=== PATIENT | female | born 1975 | race Caucasian/White ===

== ENCOUNTER 2019-04-08 15:48 | Observation (INO) ==
[2019-04-08] MEDS ORDERED: NS 1,000 ML IV ONE (16:43)
--- NOTE | 2019-04-08 17:07 | Diag Imaging Result Doc PS360 ---
EXAM: CHEST-PORTABLE HISTORY: Subdural TECHNIQUE: Chest single view COMPARISON: 09/16/2018 FINDINGS: The lungs are well expanded. The heart is not enlarged. The vessels are not distended. There are no infiltrates. No effusion identified. Left granuloma. IMPRESSION: Negative exam. Electronically signed by Barry Padilla 04/08/2019 5:04 PM
[2019-04-08 17:11] LABS: BASO# 0.08 X1000 (0.0-0.2); BASO% 0.6 % (0.0-0.8); EOS# 0.45 X1000 (0.0-0.7); EOS% 3.4 % (0.0-10.0); HEMATOCRIT 45.1 % (37.0-47.0); HEMOGLOBIN 15.4 g/dL (12.0-16.0); IMM GRAN# 0.03 X1000 (0.0-0.04); IMM GRAN% 0.2 % (0.0-0.5); LYMPH# 4.84 X1000 (1.2-3.4); MCH 31.6 PG (27-31); MCHC 34.1 g/dL (33-37); MCV 92.4 FL (81-99); MONO# 1.06 X1000 (0.11-0.59); MONO% 8.1 % (1.7-9.3); MPV 9.9 FL (7.4-10.4); NEUT# 6.62 X1000 (1.4-6.5); NEUT% 50.7 % (42.2-75.2); PLT 428 X1000 (130-400); RBC 4.88 XMIL (4.2-5.4); RDW 13.4 % (11.5-14.5); WBC 13.08 X1000 (4.8-10.8)
[2019-04-08 17:22] LABS: AGAP 14; ALB/GLOB RATIO 1.9; ALBUMIN 4.6 g/dL (3.5-5.0); ALKALINE PHOSPHATASE 68 U/L (32-104); BUN 12 mg/dL (8-22); CHLORIDE 101 mmol/L (98-107); COSMO 280; CREATININE 0.8 mg/dL (0.5-0.9); ESTIMATED GFR > 60; GLUCOSE 88 mg/dL (70-104); GOT 15 U/L (10-30); GPT 16 U/L (10-36); POTASSIUM 4.3 mmol/L (3.5-5.1); SODIUM 141 mmol/L (136-145); TCO2 26 mmol/L (25-35); TOTAL BILIRUBIN 0.31 mg/dL (0.20-1.00)
--- NOTE | 2019-04-08 17:30 | Diag Imaging Result Doc PS360 ---
EXAM : CT CERVICAL SPINE W/O CONTRAST HISTORY: neck pain after head injury TECHNIQUE: CT cervical spine without contrast COMPARISON: None. FINDINGS: There is reversal of the normal curvature with mild scoliosis as well. No precervical soft tissue swelling. No subluxation. No fracture. IMPRESSION: Cervical spine: No acute fracture. This exam was performed using automated exposure control, adjustment of mA or kV according to patient size, and/or use of iterative reconstruction technique. Electronically signed by Barry Padilla 04/08/2019 5:28 PM
[2019-04-08 17:45] LABS: INR 0.9; PROTIME 12.2 Seconds (11.0-16.0)
--- NOTE | 2019-04-08 17:45 | PROVIDER DOCUMENTATION ---
This chart was entered by Pily Aj Scribe, acting as scribe for Bronson Anderson MD. HPI-Head Injury - General Chief Complaint: Head Injury Stated Complaint: CAT SCAN RESULTS Time Seen by Provider: 04/08/19 16:13 Source: patient Allergies/Adverse Reactions: Patient Allergies Allergy/AdvReac Type Severity Reaction Status Date / Time paroxetine [From Paxil] Allergy Unknown Verified 04/08/19 17:20 Home Medications: Home Medication List Medication Instructions Recorded Confirmed Last Taken Type NK [No Home Medications] 04/08/19 04/08/19 Unknown History - History of Present Illness-Head Injury Nature of Presenting Problem: 43 yowf presents to the ed with c/o intermittent left sided/frontal headache, blurry vision and nausea since a fall last week where pt hit her head on a table. pt on exam is nontoxic in appearance. pt came to ed for CT results and shows pt has small acute extra-axial , subdural hemorrhage in right sylvian fissure Head Injury Location: reports: frontal (left) Other injuries associated with incident:: reports: head Quality of Pain: reports: throbbing Severity: reports: moderate Onset/Duration: reports: 1 week ago Timing: reports: still present, intermittent Method of Injury: reports: fell Any recent trauma/injury?: reports: minor, to head Loss of Consciousness: no loss of consciousness Modifying Factors: improves with: nothing Injury Associated Symptoms: reports: headaches, nausea. denies: back/neck pain, chest pain, dizziness, snap/crack/pop sensation, vomiting, weakness Locality of Occurance: Home Similar Symptoms Previously?: No Recently seen or treated by another doctor?: No Review of Systems - Adult - REVIEW OF SYSTEMS - ADULT Constitutional: denies: chills, fever Eyes: reports: see HPI, blurred vision. denies: eye pain Ears, Nose, Mouth & Throat: reports: no symptoms reported Cardiovascular: denies: chest pain, palpitations, syncope Respiratory: denies: cough, shortness of breath, wheezing Gastrointestinal: reports: nausea. denies: abdominal pain, diarrhea, vomiting Genitourinary: reports: no symptoms reported Musculoskeletal: denies: back pain, neck pain Integumentary: reports: no symptoms reported Neurological: reports: see HPI, headache/migraines. denies: ataxia, di zziness/vertigo, slurred speech, syncope, tremors Psychiatric: reports: no symptoms reported Endocrine: reports: no symptoms reported Hematologic/Lymphatic: reports: no symptoms reported Allergic/Immunologic: reports: no symptoms reported All Other Systems: Reviewed and Negative Past History - Adult - PAST MEDICAL HISTORY-ADULT Review of Records: reports: Old Records Reviewed, Nursing Assessment Review, Medications Reviewed, Social history reviewed & non-contributory. Major Childhood Illnesses: reports: denies history Cardiovascular: reports: denies history Respiratory: reports: denies history Gastrointestinal: reports: denies history Obstetrical/Gynecological: reports: denies history Genitourinary: reports: denies history Musculoskeletal: reports: denies history Neurological: reports: denies history Endocrine/Immune: reports: denies history Other Conditions: reports: denies history - PRIOR SURGERIES/PROCEDURES Surgical/Procedure History: reports: BTL, hernia repair - IMMUNIZATION STATUS Childhood Immunizations: See Nurse Assessment Flu Vaccine: See Nurse Assessment - FAMILY HISTORY Family History: reviewed, not pertinent - SOCIAL HISTORY Smoking: cigarettes, greater than 1 pack/day Provider spent 3-5 mins advising pt. on dangers of tobacco.: Discussed manners to quit use, and f/u contacts for add'l counseling. Substance Use: denies Alcohol Use Frequency: never Living Situation: family Physical Exam- Neurological - Physical Exam-Neuro Initial Vital Signs Reviewed: Yes General Appearance: appears well, alert, mild distress Eye Exam: bilateral eye: normal inspection, PERRL, EOMI HENMT: moist mucous membranes Head Injury: no evidence of injury, other (c/o [place] left sided/frontal) Neck: full range of motion, supple, normal inspection, tender lateral Respiratory: chest non-tender, lungs clear, normal breath sounds Cardiovascular: normal peripheral pulses, regular rate, rhythm Abdominal Exam: normal bowel sounds, non tender, soft, other (c/o mild nausea) Lymphatic: no adenopathy Extremity: normal range of motion, non-tender, normal gait, 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: normal hearing, normal speech, PERRL Coordination/Gait: normal finger to nose, normal gait Motor/Sensory: no motor deficit, no sensory deficit, no pronator drift Neurologic: 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 loader II-XII nml as tested, no motor/sensory deficits Integumentary: normal color, normal turgor, warm/dry Psych/Mental Status: normal mood/affect, normal thought content, normal thought process, oriented x 3 - Glascow Coma Scale Best Eye Response: (4) open spontaneously Best Verbal Response: (5) oriented Best Motor Response: (6) obeys commands Total Glascow Score: 15 Progress - PLAN OF CARE/RESULTS Progress/Plan/Lab Results: Vital Signs - 8 hr 04/08/19 15:52 04/08/19 16:07 04/08/19 16:09 Temperature 98.8 F Pulse Rate 88 77 Respiratory Rate 20 17 Blood Pressure 143/87 122/80 O2 Sat by Pulse Oximetry 95 98 97 04/08/19 16:30 04/08/19 16:31 Temperature Pulse Rate 69 73 Respiratory Rate 24 24 Blood Pressure 117/77 O2 Sat by Pulse Oximetry 97 98 Laboratory Results - last 24 hr 04/08/19 04/08/19 16:05 16:05 WBC 13.08 H RBC 4.88 Hgb 15.4 Hct 45.1 MCV 92.4 MCH 31.6 H MCHC 34.1 RDW Std Deviation 13.4 Plt Count 428 H MPV 9.9 Immature Gran % (Auto) 0.2 Neut % (Auto) 50.7 Lymph % (Auto) 37.0 [place] % (Auto) 8.1 Eos % (Auto) 3.4 Baso % (Auto) 0.6 Immature Gran # (Auto) 0.03 Neut # (Auto) 6.62 H Lymph # (Auto) 4.84 H [place] # (Auto) 1.06 H Eos # (Auto) 0.45 Baso # (Auto) 0.08 Sodium 141 Potassium 4.3 Chloride 101 Carbon Dioxide 26 Anion Gap 14 BUN 12 Creatinine 0.8 Estimated GFR/1.73 m2 > 60 BUN/Creatinine Ratio 15 Glucose 88 Calculated Osmolality 280 Calcium 10.0 Total Bilirubin 0.31 AST 15 ALT 16 Alkaline Phosphatase 68 Total Protein 7.0 Albumin 4.6 Globulin 2.4 Albumin/Globulin Ratio 1.9 Orders Category Date Time Status Nursing- Obtain EKG once Care 04/08/19 16:44 Active Saline Loc DIRECTED Care 04/08/19 16:43 Active CHEST-PORTABLE [RAD] Stat Exams 04/08/19 16:[address] CERVICAL SPINE W/O CONTRAST [CT] Stat Exams 04/08/19 16:44 Completed CBC WITH ELECTRONIC DIFF [HEME] Stat Lab 04/08/19 16:05 Completed COMPREHENSIVE METABOLIC PANEL [CHEM] Stat Lab 04/08/19 16:05 Completed PROTIME WITH INR [COAG] Stat Lab 04/08/19 16:05 Received PTT [COAG] Stat Lab 04/08/19 16:05 Received URINALYSIS W/POSS RFLX CULT [URINALYSIS] Stat Lab 04/08/19 16:43 Uncollected 0.9% Sodium Chloride Inj [Ns] 1,000 ml Med 04/08/19 16:43 Active IV 75 mls/hr EKG [EKG] Stat Ther 04/08/19 16:44 Ordered pt had outpatient CT today and results as follows: very small acute extra-axial, sudural hemorrhage in the right sylvian fissure. this measures 12.5x10mm. no mass effect. the ventricles and sulci are otherwise normal. the skull is intact. sinuses are clear Result Diagrams: 04/08/19 16:05 04/08/19 16:05 - REASSESSMENT Reassessment #1 Time Reassessed: 16:28 Status: unchanged (pt is resting in bed) Reassessment #2 Time Reassessed: 17:28 Status: unchanged ([facility] re-paged for admission) - EKG 1 Time of EKG reading by physician:: 17:03 EKG Read and Signed by:: Bronson Anderson EKG Interpretation (*Must complete 3 of following elements*): Normal Rate: 60 Rhythm: nsr [place]: normal QRS: normal NM Interval: normal ST Wave: normal - XRAY 1 XRAY Study: Chest Impression: Normal ( EXAM: CHEST-PORTABLE HISTORY: Subdural TECHNIQUE: Chest single view COMPARISON: 09/16/2018 FINDINGS: The lungs are well expanded. The heart is not enlarged. The vessels are not distended. There are no infiltrates. No effusion identified. Left granuloma. IMPRESSION: Negative exam. Electronically signed by Barry Padilla 04/08/2019 5:04 PM 04/08/191703 Interpreting Physician: Barry Padilla MD Dictated Date/Time: 04/08/191703 cc: Bronson Anderson MD; Mookie Sinclair MD) - CONSULTS/PCP/HOSPITALIST Notification #1 *Consult/PCP/Hospitalist*: transfer center HH Time Discussed: 16:15 Reason/Comments: phone consult #2 Consult: dr saray santana Time Discussed: 16:38 (pt can be admitted to [facility] and have a CT recheck ran in the orning and then f/u in his office next week) Consult Disposition: other (will admit at [facility]) #3 Consult: [facility] for hospitalist service paged [phone] Time Discussed: 17:09 (will all labs are back pt will be admitted per return call of Namita) Consult Disposition: Admit Departure - Departure Date of Disposition Decision: 04/08/19 Time of Disposition Decision: 16:48 DIAGNOSIS: Subdural hematoma, post-traumatic Qualifiers: Encounter type: initial encounter Loss of consciousness presence/duration: without LOC Qualified Code(s): S06.5X0A - Traumatic subdural hemorrhage without loss of consciousness, initial encounter Disposition: ADMITTED INPATIENT 09 Certified Medical Emergency: Emergent Condition: Stable Referrals and Follow-Ups: Mookie Sinclair MD [Primary Care Provider] - - Critical Care Note This patient required my direct & personal management of CC.: Yes Total Time (mins): 38 Critical Care Statement: This patient required my direct personal management to treat or rule out processes, the absence of which, could potentiallly result in sudden, clinically significant life or limb threatening deterioration. Attestation - Physician/ BENJA Attestation Patient care was provided by Advanced Practice Provider:: No The physician spent face to face time with patient:: Yes Advanced Practice Provider documentation review:: Supervising physician onsite and consulted in the evaluation and care of this patient. The physician did have a face to face encounter with the patient. This chart was documented by the indicated scribe, (Pily Aj Scribe) and accurately reflects the services I performed and decisions made by me, Bronson Anderson MD, as attested by the provider's signature.
[2019-04-08 17:46] LABS: PTT 28.4 Seconds (22.3-41.8)
--- NOTE | 2019-04-08 18:38 | EKG Report ---
Test Performed on : 04/08/2019 4:44:02 PM Test Reason : sdh Blood Pressure : / mmHG Vent. Rate : 060 BPM Atrial Rate : 060 BPM P-R Int : 138 ms QRS Dur : 088 ms QT Int : 406 ms P-R-T Axes : 053 077 064 degrees QTc Int : 406 ms Normal sinus rhythm. Normal ECG When compared with ECG of 26-APR-2011 12:23, No significant change was found Unconfirmed Result
[2019-04-08 18:42] LABS: URINE SOURCE CLEAN CATCH
[2019-04-08 18:49] LABS: BILIRUBIN URINE NEGATIVE (NEGATIVE); BLOOD URINE NEGATIVE (NEGATIVE); COLOR STRAW; GLUCOSE URINE NEGATIVE (NEGATIVE); KETONE URINE NEGATIVE (NEGATIVE); LEUKOCYTES URINE NEGATIVE (NEGATIVE); NITRITE URINE NEGATIVE (NEGATIVE); PH URINE 6.5; PROTEIN URINE NEGATIVE (NEGATIVE); SP GRAVITY URINE 1.007; TURBIDITY URINE CLEAR (CLEAR); UR EPITHELIAL CELLS <10 /HPF (<10); URINE BACTERIA NEGATIVE /HPF; URINE RBC <10 /HPF (<10); URINE WBC <10 /HPF (<10); UROBILINOGEN URINE NORMAL (NORMAL)
--- NOTE | 2019-04-08 19:10 | HISTORY AND PHYSICAL ---
CHIEF COMPLAINT: Intermittent left-sided and frontal headache with blurry vision and nausea after she had a fall last week, and hit her head on a table Saturday. HISTORY OF PRESENTING ILLNESS: This is a 43-year-old female who presents to [facility] with complaints of a intermittent left-sided frontal headache, some blurred vision, and nausea after she states Saturday she was leaning over cleaning, and hit her head on a table. She states she has not felt good since then though she has been working, but was having blurred vision and worsening headaches. Today, she had a CT of the head that showed a very small acute extra-axial subdural hemorrhage in the right Sylvian fissure. The emergency room physician spoke with Dr. Vazquez at [facility], and felt that the patient could be admitted here, and have a CT recheck in the morning, and then follow up in his office this next week. She will be admitted for further evaluation and treatment. PAST MEDICAL HISTORY: None. PAST SURGICAL HISTORY: Bilateral tubal ligation and a hernia repair, and ankle fracture repair. FAMILY HISTORY: Reviewed and noncontributory. SOCIAL HISTORY: She currently lives with family. Smokes a pack of cigarettes a day. Denies any alcohol or illicit drug use. ALLERGIES: Paroxetine. HOME MEDICATIONS: She does not take any medications on a routine basis at this time. LABORATORY DATA: White blood cell count of 13.08, hemoglobin 15.4, hematocrit 45.1, and platelets 428,000. PT and INR of 12.2 and 0.90. Sodium 141, potassium 4.3, chloride 101, CO2 26, BUN of 12, creatinine 0.8, and glucose 88. Her outpatient CT of the head today showed a very small acute extra-axial subdural hemorrhage in the right sylvian fissure. Cervical spine CT showed no acute fracture. Chest x-ray showed a negative exam. REVIEW OF SYSTEMS: She denied any fever or chills. She has had some blurred vision, dizziness, left-sided frontal headache. Denied any chest pain, coughing, or shortness of breath. Denied any abdominal pain, constipation, diarrhea, burning or hurting with urination. PHYSICAL EXAMINATION: On arrival, she had a temperature of 98.8 degrees, pulse 88, respirations 20, blood pressure 143/67 and saturating 95% on room air. GENERAL: This is a 43-year-old female who is lying in the bed and answers questions appropriately. HEENT: Normocephalic, atraumatic. Normal ENT inspection. Oropharynx and nares are clear. EYES: Pupils are equal, round, and reactive to light and accommodation. Extraocular movements are intact. NECK: Normal inspection. Normal range of motion. LUNGS: Clear to auscultation bilaterally with equal lung expansion and chest wall movement. HEART: Regular rate and rhythm. No murmurs, rubs, or gallops. ABDOMEN: Soft, nontender, and nondistended. Bowel sounds are present x4 quadrants. MUSCULOSKELETAL: She has 5/5 strength x4 extremities. NEUROLOGICAL: The cranial nerves 2-12 appear grossly intact. ASSESSMENT: 1. Subdural hemorrhage. 2. Leukocytosis. 3. Headache, secondary to #1. 4. Tobacco abuse. PLAN: She will be admitted to the medical unit. Placed on a regular diet. We will do neuro checks q.4 hours for [address] of the head without contrast in the morning. Toradol 15 mg IV q.6 hours p.r.n., Zofran 4 mg IV q.4 hours p.r.n., Tylenol 650 p.o. q.6 hours p.r.n. Recheck a CBC and a BMP in the morning. Dictated by CASEY Morejon for Placido Dejesus MD
[2019-04-08] MEDS ORDERED: ZOFRAN IV PRN (19:32)
[2019-04-08] MEDS ORDERED: TYLENOL PO PRN (19:32)
[2019-04-08] MEDS ORDERED: TORADOL IV PRN (19:32)
[2019-04-08 21:08] VITALS: BP 123/81
--- NOTE | 2019-04-08 21:49 | HISTORY AND PHYSICAL ---
ADDENDUM: The patient is seen and examined by me [id number]. All the laboratory and vital signs were reviewed. Patient presented to the emergency department due to head trauma that happened a few days ago, last Saturday. It looks like she fell and hit her head on a table. Since then she has been complaining of intermittent left-sided headache. Today in the morning apparently she had an episode of blurred vision associated with nausea in her office. CT scan done as an outpatient showed a very small acute extraaxial subdural hemorrhage in the right sylvian fissure. It looks [facility] and felt that the patient could be admitted here, have a new CT scan in the morning, and recheck the patient. Probably I will get Neurology Department to evaluate this patient prior to her discharge hopefully tomorrow. We will continue to monitor. Her vital signs are stable. Her leukocyte count is a little bit elevated at 13, but I do not have any source of infection. No fever, no chills. I do not see any focal neurological deficits on my physical exam. She is not having blurry vision, either. Family member at the bedside. I agree with the rest of the nurse practitioner's assessment and plan. cc: Placido Dejesus MD
--- NOTE | 2019-04-09 15:45 | DISCHARGE SUMMARY ---
ADMISSION DATE: 04/08/2019 DISCHARGE DATE: 04/09/2019 PRIMARY CARE PHYSICIAN: Dr. Mookie Sinclair. Please note this is an AMA discharge. ADMISSION DIAGNOSES: 1. Subdural hemorrhage. 2. Leukocytosis. 3. Headache, secondary to #1. 4. Tobacco abuse. DISCHARGE DIAGNOSIS: 1. Subdural hemorrhage. 2. Leukocytosis. 3. Headache, secondary to #1. 4. Tobacco abuse. SUMMARY OF FINDINGS: This is a 43-year-old female who presented to the ER with complaints of an intermittent left-sided frontal headache and some blurred vision and nausea after she states she was cleaning at her home Saturday and leaned over and hit her head on a table. Stated that she had not felt good since that time and had some blurred vision and worsening headaches. On the day of admission, she had an outpatient CT of the head that showed a small acute extra- axial subdural hemorrhage in the right Sylvian fissure. The ER physician spoke with Dr. Vazquez at [facility] and felt that she could be admitted, have a repeat CT scan the next morning and then follow up in his office. It is documented around 2345 the patient was noted to be missing from her room and was assumed to be downstairs smoking. They waited a while looking for her. Long story short, around 1 o'clock in the morning, nurse began calling her phone, her 's listed number, and the mom's and was unsuccessful. Around 0115 the patient called back and stated that she left because "she could not get comfortable." The patient was called back by the nurse to inform her that the police department had been dispatched to confirm that her IV was not still intact and around 0215, our security guards here at [facility] reported that they received a phone call from [facility]'s Department confirming that the patient's IV was out so this is an AMA discharge. Dictated by CASEY Morejon for Placido Dejesus MD cc: CASEY Morejon MD Michael C. Donham, MD [facility]
== END 2019-04-08 23:45 | disposition left against medical advice (07) ==
LOC: 3N 15:48 → ED 15:48
PROVIDERS: ATTEND Internal Medicine